=== PATIENT | female | born 1990 | race Caucasian/White ===

== ENCOUNTER 2023-03-22 16:17 | Emergency (ER) | payer OTHER ==
[2023-03-22 16:46] VITALS: BP 122/72; PULSE 85; RESP 17; TEMP 98.8; BMI 28.3
[2023-03-22] MEDS ORDERED: SODIUM CHLORIDE 1,000 ML IV STA (18:46)
[2023-03-22 19:59] LABS: BASO % 0.8 % (0-2.0); EOS % 1.2 % (0-4.5); HEMOGLOBIN 12.5 GM/dL (10.7-15.3); LYMPH % 29.5 % (8-40); MCH 28.2 pg (25.7-33.7); MCHC 32.9 g/dl (32.0-36.0); MEAN CELL VOLUME 85.6 fl (80-96); MEAN PLT VOLUME 9.4 fl (7.5-11.1); MONO % 4.7 % (3.8-10.2); NEUT % 63.8 % (42.8-82.8); PLATELET COUNT 270 10^3/uL (134-434); RBC 4.44 M/mm3 (3.60-5.2); RDW 14.9 % (11.6-15.6); WHITE BLOOD COUNT 9.3 K/mm3 (4.0-10.0)
[2023-03-22 20:02] LABS: POTASSIUM 3.9 mmol/L (3.5-5.1)
[2023-03-22 20:04] LABS: ALBUMIN 3.9 g/dl (3.4-5.0); CALCIUM 9.7 mg/dL (8.5-10.1)
[2023-03-22 20:05] LABS: BLOOD UREA NITROGEN 11.7 mg/dL (7-18)
[2023-03-22 20:09] LABS: BILIRUBIN,TOTAL 0.3 mg/dL (0.2-1); CREATININE 0.8 mg/dL (0.55-1.3)
[2023-03-22 20:12] LABS: INR 1.13 (0.83-1.09); PROTHROMBIN TIME (PATIENT) 13.1 SEC (9.7-13.0)
[2023-03-22 20:15] LABS: ACTIVATED PTT 34.2 SECONDS (25.2-36.5)
== END 2023-03-22 22:17 | disposition home or self-care (01) ==
LOC: JER 16:17
PROC: 3E0337Z Introduction of Electrolytic and Water Balance Substance into Peripheral Vein, Percutaneous Approach (ICD-10-PCS; principal; 2023-03-22)
DX: R07.82 Intercostal pain (principal); R06.02 Shortness of breath; R42 Dizziness and giddiness; R00.2 Palpitations; Z20.822 Contact with and (suspected) exposure to COVID-19
CPT/HCPCS: 0241U-QW; 36415; 71046-TC-FY; 80053; 84484; 84703; 85025; 85379; 85610; 85730; 93005; 93010; 99285-25

== ENCOUNTER → 2024-12-10 | Day surgery (SDC) | payer OTHER | END | disposition home or self-care (01) | LOC: JRADIR 09:54 | PROVIDERS: ATTEND Internal Medicine Endocrinology, Diabetes & Metabolism | PROC: 0G9K3ZX Drainage of Thyroid Gland, Percutaneous Approach, Diagnostic (ICD-10-PCS; principal; 2024-12-10) | DX: E04.1 Nontoxic single thyroid nodule (principal) | CPT/HCPCS: 10005; 76942; 88173; 88305-TC ==